=== PATIENT | male | born 1990 | race Caucasian/White ===

== ENCOUNTER 2021-02-06 17:50 | Emergency (ER) | payer OTHER ==
[~2021-02-06] VITALS: Ht 182.9 cm; Wt 73.0 kg
[2021-02-06 18:17] VITALS: BP 150/87
--- NOTE | 2021-02-06 18:21 | NUR ---
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 SWABBED FOR COVID IN TRIAGE. PT. TO BE DISCHARGED FROM TRIAGE AREA.
== END 2021-02-06 18:37 | disposition home or self-care (01) ==
LOC: ED 18:00
DX: Z00.00 Encounter for general adult medical examination without abnormal findings (principal); Z20.822 Contact with and (suspected) exposure to COVID-19
CPT/HCPCS: 99283; U0003; U0005

== ENCOUNTER 2021-02-09 12:55 | Emergency (ER) | payer OTHER ==
[~2021-02-09] VITALS: Ht 182.9 cm; Wt 71.6 kg
[2021-02-09 13:01] VITALS: BP 138/79
== END 2021-02-09 14:15 | disposition home or self-care (01) ==
LOC: ED 13:31
DX: Z20.822 Contact with and (suspected) exposure to COVID-19 (principal)
CPT/HCPCS: 99283; U0003; U0005